=== PATIENT | female | born 2000 | race Caucasian/White ===

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

== ENCOUNTER 2022-05-31 16:43 | Day surgery (SDC) | payer OTHER ==
[~2022-05-31 16:43] MED LIST: ONDANSETRON ODT8 MG PO
--- NOTE | 2022-05-31 19:41 | NUR ---
05/31/221940 Joan Mercedes 1919-PATIENT ARRIVED TO PACU ON 10L MASK NONAROUSABLE RN DOING JAW THRUST TO MAINTAIN OPEN AIRWAY ORAL AIRWAY IN PLACE. VAMSI PAD PLACED BENEATH PATIENT NO DRAINAGE SEEN. 3 LAP SITES TO ABDOMEN SMALL AMT OF DRAIANGE ON BANDAID TO UMBILICUS. ST HR 115-120'S. 1924-PATIENT REMAINS NONAROUSABLE CLENCHING TEETH WITH ORAL AIRWAY NOT MOVING AIR. RN DOING JAW THRUST AND JAW IS TIGHT. DEYSI LUZ AT BEDSIDE AND DID JAW THRUST. RN SUCTIONED THIN SECRETION. PATIENT STARTING TO COUGH AND MOVING AIR. PATIENT ON 6L MASK RR EVEN 99%
--- NOTE | 2022-05-31 20:48 | NUR ---
PT ARRIVED FROM PACU AT 2009, ALERT/ORIENTED, BUT TEARFUL. PRN MOTRIN GIVEN FOR 3/10 INCISIONAL PAIN AND ICE PACK PLACED TO ABDOMEN. VAMSI PAD IS DRY AND ABDOMINAL LAP SITES X3 ARE COVERED WITH STERISTRIPS AND BANDAIDS, SMALL AMOUNT OF SEROSANGUINOUS DRAINAGE PRESENT TO ALL SITES. SCD'S IN PLACE. IV PATENT AND INFUSING PER ORDERS. PT UP TO BR WITH SBA, ABLE TO VOID 250ML YELLOW URINE. PT TOLERATED WATER, THEN APPLE SAUCE WITHOUT NAUSEA. CALL LIGHT AND BELONGINGS WITHIN REACH.
--- NOTE | 2022-05-31 21:09 | NUR ---
PT ABLE TO EAT CRACKERS WITHOUT NAUSEA. STATES SHE IS READY TO GO HOME. IVF COMPLETED, IV SALINE LOCKED. PT'S BOYFRIEND AYDEE CALLED TO GAUGE OPERATOR PT PER PT'S REQUEST.
--- NOTE | 2022-05-31 21:30 | NUR ---
PT HAS MET CRITERIA FOR D/C. IV REMOVED WNL. D/C INSTRUCTIONS REVIEWED AND COPY PROVIDED. QUESTIONS ANSWERED, PT STATES UNDERSTANDING. RX GIVEN TO PT. PT ESCORTED TO FRONT IN WHEELCHAIR, PT'S BOYFRIEND AYDEE TO DRIVE HER HOME. PT HAS ALL BELONGINGS.
--- NOTE | 2022-06-01 21:28 | OR ---
[facility] [address], [place] [address] Signed DATE OF OPERATION: 05/31/2022 SURGEON: Jihan Craig MD PREOPERATIVE DIAGNOSIS: Ectopic . POSTOPERATIVE DIAGNOSIS: Ectopic with severe pelvic adhesions. PROCEDURES PERFORMED: Laparoscopy, right salpingostomy, lysis of adhesions. ANESTHESIA: General ET. ESTIMATED BLOOD LOSS: 25 mL. DRAINS: None. INDICATIONS AND FINDINGS: The patient is a 21-year-old female, 1, who was 8 weeks 1 days by her LMP, who was diagnosed with an ectopic today by ultrasound with an empty uterus and a right adnexal mass as well as a quant of over 6000. She has been having spotting for the last couple of weeks. She is having an occasional twinge of pain. At the time of surgery, exam under anesthesia was normal. At the time of laparoscopy, there was an unruptured right tubal . There were severe pelvic adhesions consistent with past PID. These surrounded both of the tubes, the posterior cul-de-sac, and the ovaries. Both of the tubes were closed and were dilated. DESCRIPTION OF PROCEDURE: The patient was prepped and draped in the dorsal lithotomy position. An open-sided speculum was placed. The anterior lip of the cervix was visualized and grasped with a single-tooth tenaculum. A Hulka clamp was attempted but could not be placed. The Justa cannula was placed and this also could not be retained. Subsequent to this, a 2nd tenaculum was placed on the posterior lip and attention was directed above after removal of the speculum. The infraumbilical area was injected with 0.5% Marcaine plain. An incision was made with a knife, and each layer serially elevated and incised until the Electronically Signed By: JIHAN CRAIG MD 06/01/22 2128 PATIENT NAME: SUJATA SIMS OPERATIVE REPORT DATE OF : 00 REPORT #: [id number] PHYSICIAN: JIHAN CRAIG MD PCP: NO PRIMARY CARE PHYSICIAN REPORT IS CONFIDENTIAL AND NOT TO BE RELEASED WITHOUT AUTHORIZATION [facility] [address], [place] [address] Signed fascia was opened and identified. Stay sutures of 0 Vicryl were placed. The peritoneum was opened bluntly. The Jin cannula was placed and tied into place and the balloon inflated. Placement of the scope confirmed proper positioning. CO2 was then introduced into the abdomen. When the abdomen was appropriately distended, secondary ports were placed. These were placed laterally slightly below the level of the umbilicus. Each of these areas was transilluminated, injected with the Marcaine, incision made with a knife, and each trocar placed under direct vision. These were 5 mm ports. Following this, the pelvis was evaluated and the ectopic seen as well as the severe adhesions. The right mesosalpinx was injected with a dilute solution of vasopressin of 20 units and 20 mL of normal saline. The anti-mesenteric side of the tube was then opened over the area of the tubal using the spatula tip followed by the monopolar scissors. Following this, the tissue was removed with blunt forceps. The tube was then irrigated and no remaining tissue was found. The base was treated with cautery. The decision was made to lyse some of the adhesions. The monopolar scissors were used to free up the tube from the right side of the posterior uterus. The posterior cul-de-sac was also cleared of the adhesions. The adhesions around the patient's left tube and ovary which were adherent to the sigmoid into the posterior cul-de-sac were also serially lysed. Both of the tubes were closed. No attempt was made to do any repair on the tubes. The pelvis was thoroughly irrigated and inspected. There was still some bleeding from the base of the ectopic site and this was treated further with cautery. Finally, it appeared that everything was hemostatic and as much fluid as possible was removed from the abdomen. The instruments removed from the abdomen after allowing as much CO2 as possible to escape. The fascial incision at the umbilicus was reidentified and closed with running suture of 0 Vicryl. The skin incisions were closed with subcuticular sutures of 3-0 Vicryl Rapide. Attention was directed down below and the instruments removed. The cervix was visualized and there was no evidence of any ongoing bleeding from the tenaculum sites. The Hinds catheter placed at the beginning of the case was removed. All sponge and needle counts were correct. She tolerated the procedure well and was taken to the recovery room in good condition. Jihan Craig MD PJW/MODL /[id number] Electronically Signed By: JIHAN CRAIG MD 06/01/22 2128 PATIENT NAME: SUJATA SIMS OPERATIVE REPORT DATE OF : 00 REPORT #: [id number] PHYSICIAN: JIHAN CRAIG MD PCP: NO PRIMARY CARE PHYSICIAN REPORT IS CONFIDENTIAL AND NOT TO BE RELEASED WITHOUT AUTHORIZATION [facility] [address] [place] [address] [place], [place] [address] Signed Copies: ~ Electronically Signed By: JIHAN CRAIG MD 06/01/228 PATIENT NAME: SUJATA SIMS PIERCY OPERATIVE REPORT DATE OF : 00 REPORT #: [id number] PHYSICIAN: JIHAN CRAIG MD PCP: NO PRIMARY CARE PHYSICIAN REPORT IS CONFIDENTIAL AND NOT TO BE RELEASED WITHOUT AUTHORIZATION
== END 2022-05-31 21:30 | disposition home or self-care (01) ==
LOC: DS 16:43 → FBC 20:05 → DS 21:30
PROVIDERS: ATTEND Obstetrics & Gynecology
PROC: 0U1 Female Reproductive System, Bypass (ICD-10-PCS; principal; 2022-05-31 16:16)
DX: O00.101 Right tubal pregnancy without intrauterine pregnancy (principal); Z88.0 Allergy status to penicillin
CPT/HCPCS: A9270; J0131; J0330; J0461; J1100; J1885; J2250; J2405; J2704; J2765; J3010; J7121